=== PATIENT | female | born 1945 | race Caucasian/White ===

== ENCOUNTER 2020-01-09 13:16 | Emergency (ER) | payer MEDICARE, OTHER ==
[~2020-01-09] VITALS: Ht 167.6 cm; Wt 90.7 kg
[2020-01-09] MEDS ORDERED: predniSONE 10 MG TABLET PO ONE (14:00)
[2020-01-09] MEDS ORDERED: FAMOTIDINE (20 MG) 20 MG TABLET PO ONE (14:00)
[2020-01-09] MEDS ORDERED: BACITRACIN ZINC OINT PACKET 1 EA PACKET TP ONE (14:00)
[2020-01-09] MEDS ORDERED: diphenhydrAMINE HCL 50 MG CAPSULE PO ONE (14:00)
[2020-01-09] MEDS ORDERED: diphenhydrAMINE HCL 50 MG CAPSULE ONE (14:07)
[2020-01-09] MEDS ORDERED: predniSONE 20 MG TABLET ONE (14:07)
[2020-01-09] MEDS ORDERED: FAMOTIDINE (20 MG) 20 MG TABLET ONE (14:07)
[2020-01-09] MEDS ORDERED: TDAP [DIPH/PERTUSSIS/TET] 0.5 ML VIAL IM ONE ×2 (14:30→14:55)
[2020-01-09] MEDS ORDERED: IBUPROFEN 400 MG TABLET PO ONE (14:30)
[2020-01-09] MEDS ORDERED: IBUPROFEN 400 MG TABLET ONE (14:55)
[2020-01-09 15:00] VITALS: BP 162/81
--- NOTE | 2020-01-09 15:10 | NUR ---
CALLED NURSING SUP FOR A TAXI VOUCHER.
--- NOTE | 2020-01-09 15:22 | NUR ---
Patient discharged to home in stable condition. Written and verbal after care instructions given. Patient verbalizes understanding of instruction.
== END 2020-01-09 15:25 | disposition home or self-care (01) ==
LOC: ER 13:18
DX: T21.22XA Burn of second degree of abdominal wall, initial encounter (principal); T37.0X5A Adverse effect of sulfonamides, initial encounter; L03.211 Cellulitis of face; H54.7 Unspecified visual loss; H10.89 Other conjunctivitis; E78.5 Hyperlipidemia, unspecified; I10 Essential (primary) hypertension; Z90.49 Acquired absence of other specified parts of digestive tract; Z59.0 Homelessness; X12.XXXA Contact with other hot fluids, initial encounter; Y93.89 Activity, other specified; Y92.89 Other specified places as the place of occurrence of the external cause; Y99.8 Other external cause status
CPT/HCPCS: 16020; 90471; 90715; 99285; A6253; J7512; Q0163